=== PATIENT | female | born 1990 | race Caucasian/White ===

== ENCOUNTER 2019-02-28 10:41 | Day surgery (SDC) | payer OTHER ==
[2019-02-28] MEDS ORDERED: Lactated Ringers 1,000 ML IV SCH (11:30)
--- NOTE | 2019-02-28 11:41 | PCM.PREANE ---
Preanesthetic Assessment - Anesthesia/Transfusion/Family Hx Anesthesia History: No Prior Anesthesia Family History of Anesthesia Reaction: No Transfusion History: No Prior Transfusion(s) Intubation History: Unknown - Review of Systems General: No Symptoms Pulmonary: No Symptoms Cardiovascular: No Symptoms Gastrointestinal: No Symptoms Neurological: No Symptoms Other: Reports: None - Physical Assessment O2 Sat by Pulse Oximetry: 98 Respiratory Rate: 16 Vital Signs: Last Vital Signs Temp 36.3 C 02/28/19 11:25 Pulse 76 02/28/19 11:25 Resp 16 02/28/19 11:25 BP 133/83 02/28/19 11:25 Pulse Ox 98 02/28/19 11:25 Height: 5 ft 5.5 in Weight: 73.936 kg ASA Class: 1 Mental Status: Alert & Oriented x3 Airway Class: Mallampati = 1 Dentition: Reports: Normal Dentition Thyro-Mental Finger Breadths: 3 Mouth Opening Finger Breadths: 3 ROM/Head Extension: Full Lungs: Clear to Auscultation, Normal Respiratory Effort Cardiovascular: Regular Rate, Regular Rhythm - Lab Values: Laboratory Last Values WBC 6.53 K/uL (4.0-11.0) 02/27/19 08:45 RBC 4.46 M/uL (4.30-5.90) 02/27/19 08:45 Hgb 13.6 g/dL (12.0-16.0) 02/27/19 08:45 Hct 40.2 % (36.0-46.0) 02/27/19 08:45 MCV 90.1 fL (80.0-98.0) 02/27/19 08:45 MCH 30.5 pg (27.0-32.0) 02/27/19 08:45 MCHC 33.8 g/dL (31.0-37.0) 02/27/19 08:45 RDW Std Deviation 41.7 fl (28.0-62.0) 02/27/19 08:45 RDW Coeff of Megan 13 % (11.0-15.0) 02/27/19 08:45 Plt Count 293 K/uL (150-400) 02/27/19 08:45 MPV 9.60 fL (7.40-12.00) 02/27/19 08:45 Nucleated RBC % 0.0 /100WBC 02/27/19 08:45 Nucleated RBCs # 0 K/uL 02/27/19 08:45 Blood Type O POSITIVE 02/27/19 08:45 Antibody Screen NEGATIVE 02/27/19 08:45 - Allergies Allergies/Adverse Reactions: Allergies Allergy/AdvReac Type Severity Reaction Status Date / Time No Known Allergies Allergy Verified 02/24/19 08:33 - Blood Blood Available: No - Anesthesia Plan Pre-Op Medication Ordered: None - Acknowledgements Anesthesia Type Planned: General Anesthesia Pt an Appropriate Candidate for the Planned Anesthesia: Yes Alternatives and Risks of Anesthesia Discussed w Pt/Guardian: Yes Pt/Guardian Understands and Agrees with Anesthesia Plan: Yes PreAnesthesia Questionnaire - Past Health History Medical/Surgical History: Denies 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 - Past Surgical History Head Surgeries/Procedures: Reports: None - SUBSTANCE USE Smoking Status *Q: Never Smoker Recreational Drug Use History: No - HOME MEDS Home Medications: Home Meds Ascorbate Calcium [Vitamin C] 500 mg PO DAILY 02/24/19 [History] Calcium Carbonate/Vitamin D3 [Calcium 250+D] 1 tab PO DAILY 02/24/19 [History] Choline Dihydrogen Citrate [Choline Citrate] 350 mg PO DAILY 02/24/19 [History] Fish Oil/[place]-3 Fatty Acids [Fish Oil 1,000 MG] 2,000 mg PO DAILY 02/24/19 [ History] L.acidoph,Paracasei, B.lactis [Probiotic] 1 tab PO DAILY 02/24/19 [History] PNV95/Ferrous Fumarate/FA [ Vitamin Tablet] 1 tab PO DAILY 02/24/19 [ History] Vitamin B6-pyridOXINE 1 tab PO DAILY 02/24/19 [History] - CURRENT (IN HOUSE) MEDS Current Meds: Current Medications Lactated Ringer's (Ringers, Lactated) 1,000 mls @ 100 mls/hr IV ASDIRECTED CHARANJIT
[2019-02-28] MEDS ORDERED: Propofol 200 MG/20 ML SDV ONE (12:41)
[2019-02-28] MEDS ORDERED: fentaNYL 100 MCG/2 ML SDV ONE ×2 (12:41→13:20)
[2019-02-28] MEDS ORDERED: Midazolam 1 MG/ML 2 ML SDV ONE (12:41)
[2019-02-28] MEDS ORDERED: Dexamethasone 4 MG/ML 5 ML MDV ONE (13:20)
[2019-02-28] MEDS ORDERED: Ondansetron 4 MG/2 ML SDV ONE (13:20)
--- NOTE | 2019-02-28 13:39 | PCM.OPNOTE ---
- General Post-Op/Procedure Note Date of Surgery/Procedure: 02/28/19 Operative Procedure(s): hysteroscopic evacuation of products of conception with dilatation and curettage. Findings: uterus midposition, sounds to 8 cm, large piece of tissue attached to anterior fundus removed, normal uterine cavity after removal of tissue. Pre Op Diagnosis: incomplete spontaneous . Post-Op Diagnosis: Same Anesthesia Technique: General LMA Primary Surgeon: Angelica Murphy Anesthesia Provider: Marcia Davey [employer] Supervisor: Enedina Gonzales Pathology: products of conception Fluid Replacement, Intraop: 900 EBL in mLs: 10 Drain/Tube Comments:: hysteroscopic deficit 125 ml. Complications: None Known. Condition: Good
--- NOTE | 2019-02-28 14:15 | PCM.POSTAN ---
POST ANESTHESIA ASSESSMENT - MENTAL STATUS Mental Status: Alert - VITAL SIGNS Pulse Rate: 64 SaO2: 96 Resp Rate: 16 Blood Pressure: 109/70 - RESPIRATORY Respiratory Status: Respiratory Rate WNL, Airway Patent, O2 Saturation Stable - CARDIOVASCULAR CV Status: Pulse Rate WNL, Blood Pressure Stable, Other (occasional PVC's, EKG ordered. Pt denies history of PVC's or cardiac abnormalities. BP WNL.) - POST OP HYDRATION Hydration Status: Adequate & Stable
--- NOTE | 2019-02-28 15:35 | PCM48HPAN ---
Post Anesthesia Note - EVALUATION WITHIN 48HRS OF ANESTHETIC Vital Signs in Normal Range: Yes Patient Participated in Evaluation: Yes Respiratory Function Stable: Yes Airway Patent: Yes Cardiovascular Function Stable: Yes Hydration Status Stable: Yes Pain Control Satisfactory: Yes Nausea and Vomiting Control Satisfactory: Yes Mental Status Recovered: Yes Pulse Rate: 64 Resp Rate: 16 Blood Pressure: 109/70 - COMMENTS/OBSERVATIONS Free Text/Narrative:: no anesthesia problems
--- NOTE | 2019-02-28 18:35 | OR ---
SURGEON: Angelica Murphy M.D. DATE OF PROCEDURE: 02/28/2019 PREOPERATIVE DIAGNOSIS: Incomplete spontaneous . POSTOPERATIVE DIAGNOSIS: Incomplete spontaneous . PROCEDURE: Hysteroscopic removal of retained products of conception and uterine curettage. PRIMARY SURGEON: Angelica Murphy M.D. ANESTHESIA: General LMA. ESTIMATED BLOOD LOSS: Less than 10 mL. FLUIDS: 900 mL of crystalloid. HYSTEROSCOPIC DEFICIT: 125 mL normal saline. FINDINGS: Uterus sounded to 8 cm mid position with excellent visualization of the uterine cavity and the anterior fundal portion. There was an attached large piece of tissue that was removed with the MyoSure. Following this, there was normal appearance of the uterine cavity. Bilateral tubal ostia were identified and were normal. COMPLICATIONS: None known. DISPOSITION: Stable to recovery. PATHOLOGY SPECIMEN: Products of conception. BRIEF HISTORY: This is a 28-year-old female. She is G2, P0-0-2-0, with current spontaneous , having been followed with HCG following spontaneously from 80 down to 13/2 weeks' time. Her bleeding had almost resolved, however, she continued to have some brownish discharge. She denies fever, chills, or pelvic pain. Ultrasound confirmed retained products of conception with increased Doppler flow and therefore as this was an incomplete spontaneous , recommendation after 2 weeks of observation was to proceed with intervention. Due to the prolonged episode and small piece of tissue, I recommended proceeding with a hysteroscopic approach with the MyoSure followed by curettage. Surgical risks were reviewed including bleeding, infection, injury to bowel, bladder, blood vessels, ureters, or other organs; risk of thromboembolic event, risk of Asherman syndrome, risk of uterine perforation, risk of fluid overload. Understanding all these risks, she does desire to proceed. DESCRIPTION OF PROCEDURE: With the patient in the dorsal lithotomy position, under adequate general LMA analgesia, the abdomen and perineum were prepped with Betadine and draped in usual fashion for vaginal surgery. SCDs were in place. The bladder had been drained with a straight cath and an appropriate time-out was held after the pelvis was appropriately draped. Bimanual examination revealed a midposition 8 week size uterus. Speculum was placed in the vagina. The anterior lip of the cervix was grasped with an Allis clamp. The uterus was sounded to 8 cm. The cervix was easily dilated to a 6 mm Hegar dilator. The hysteroscope was placed into the uterine cavity. There was excellent visualization, but with a large piece of tissue on the anterior fundus extending most of the way down the anterior uterus, the MyoSure was utilized to remove the tissue. Following removal of the tissue, there was no evidence of further retained products of conception. There was excellent visualization of the uterine cavity. Bilateral tubal ostia were identified and the hysteroscope was removed. Sharp curettage was performed at the 12, 3, 6, and 9 o'clock position. Minimal additional tissue was obtained and a good uterine cry was felt. All the instruments were removed from the vagina. Final sponge, needle, and instrument counts were reported as correct. There were no known complications. The patient was transferred to recovery in good condition. DARYN DICKSON /[id number]
== END 2019-02-28 16:00 | disposition home or self-care (01) ==
LOC: MW.SDS 10:41
PROVIDERS: ATTEND Obstetrics & Gynecology
DX: O03.4 Incomplete spontaneous abortion without complication (principal); Z79.899 Other long term (current) drug therapy
CPT/HCPCS: 36415; 58558; 85027; 86850; 86900; 86901; 93005; J1100; J2250; J2405; J2704; J3010; J7120; 88305

== ENCOUNTER 2020-01-13 07:11 | Inpatient (IN) | payer OTHER ==
[2020-01-13] MEDS ORDERED: Nalbuphine 10 MG/1 ML Vial IVPUSH PRN (08:20)
[2020-01-13] MEDS ORDERED: Sodium Chloride 0.9% 10 ML SDV IV PRN (08:20)
[2020-01-13] MEDS ORDERED: Methylergonovine 0.2 MG/1 ML Amp IM PRN (08:20)
[2020-01-13] MEDS ORDERED: Misoprostol 200 MCG Tab PO PRN (08:20)
[2020-01-13] MEDS ORDERED: Carboprost Tromethamine 250 MCG/1 ML Amp IM PRN (08:20)
[2020-01-13] MEDS ORDERED: Sodium Chloride 0.9% 2.5 ML Syringe FLUSH PRN (08:20)
[2020-01-13] MEDS ORDERED: Lidocaine 1% 50 ML MDV INJECT PRN (08:20)
[2020-01-13] MEDS ORDERED: Tranexamic Acid 1,000 MG in Sodium Chloride 0.9% 100 ML IV PRN (08:20)
[2020-01-13] MEDS ORDERED: Water For Irrigation,Sterile 1,000 ML Container IRR PRN (08:20)
[2020-01-13] MEDS ORDERED: Sodium Chloride 0.9% 10 ML Syringe FLUSH PRN (08:20)
[2020-01-13] MEDS ORDERED: Butorphanol 1 MG/ML SDV IVPUSH PRN (08:20)
[2020-01-13] MEDS ORDERED: Oxytocin/0.9 % Sodium Chloride 30 UNIT/500 ML BAG IV SCH ×2 (08:30→20:30)
[2020-01-13] MEDS: Lactated Ringers 1,000 ML IV SCH ×3 (08:55→20:12)
--- NOTE | 2020-01-13 14:04 | PCM.PREANE ---
Preanesthetic Assessment - Procedure Proposed Procedure: labor epidural consult - Anesthesia/Transfusion/Family Hx Anesthesia History: Prior Anesthesia Without Reaction Other Type of Anesthesia Reaction Comment: pt states had some arrythmia during surgery EKG performed in PACU and WNL Family History of Anesthesia Reaction: No Family History of Anesthesia Reaction, Other: nausea Transfusion History: No Prior Transfusion(s) Intubation History: Unknown - Review of Systems General: No Symptoms Pulmonary: No Symptoms Cardiovascular: No Symptoms Gastrointestinal: No Symptoms Neurological: No Symptoms Other: Reports: None - Physical Assessment Height: 5 ft 5 in Weight: 87.543 kg ASA Class: 2 Mental Status: Alert & Oriented x3 Airway Class: Mallampati = 1 Dentition: Reports: Normal Dentition Thyro-Mental Finger Breadths: 3 Mouth Opening Finger Breadths: 3 ROM/Head Extension: Full Lungs: Clear to Auscultation, Normal Respiratory Effort Cardiovascular: Regular Rate, Regular Rhythm - Lab Values: Laboratory Last Values WBC 12.81 K/uL (4.0-11.0) H 01/13/20 08:53 RBC 4.48 M/uL (4.30-5.90) 01/13/20 08:53 Hgb 14.0 g/dL (12.0-16.0) 01/13/20 08:53 Hct 41.0 % (36.0-46.0) 01/13/20 08:53 MCV 91.5 fL (80.0-98.0) 04 08:53 MCH 31.3 pg (27.0-32.0) 01/13/20 08:53 MCHC 34.1 g/dL (31.0-37.0) 01/13/20 08:53 RDW Std Deviation 44.9 fl (28.0-62.0) 01/13/20 08:53 RDW Coeff of Megan 14 % (11.0-15.0) 01/13/20 08:53 Plt Count 207 K/uL (150-400) 01/13/20 08:53 MPV 10.40 fL (7.40-12.00) 01/13/20 08:53 Nucleated RBC % 0.0 /100WBC 01/13/20 08:53 Nucleated RBCs # 0 K/uL 01/13/20 08:53 Blood Type O POSITIVE 01/13/20 08:53 Antibody Screen NEGATIVE 01/13/20 08:53 - Allergies Allergies/Adverse Reactions: Allergies Allergy/AdvReac Type Severity Reaction Status Date / Time No Known Allergies Allergy Verified 02/24/19 08:33 - Blood Blood Available: Yes Product(s) Available: PRBC - Anesthesia Plan Pre-Op Medication Ordered: None - Acknowledgements Anesthesia Type Planned: Epidural Pt an Appropriate Candidate for the Planned Anesthesia: Yes Alternatives and Risks of Anesthesia Discussed w Pt/Guardian: Yes Pt/Guardian Understands and Agrees with Anesthesia Plan: Yes PreAnesthesia Questionnaire - Past Health History Medical/Surgical History: Denies 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 - Past Surgical History Head Surgeries/Procedures: Reports: None - HOME MEDS Home Medications: Home Meds Ascorbate Calcium [Vitamin C] 500 mg PO DAILY 02/24/19 [History] Calcium Carbonate/Vitamin D3 [Calcium 250+D] 1 tab PO DAILY 02/24/19 [History] Choline Dihydrogen Citrate [Choline Citrate] 350 mg PO DAILY 02/24/19 [History] Fish Oil/[place]-3 Fatty Acids [Fish Oil 1,000 MG] 2,000 mg PO DAILY 02/24/19 [ History] L.acidoph,Paracasei, B.lactis [Probiotic] 1 tab PO DAILY 02/24/19 [History] Pnv No.95/Ferrous Fum/Folic AC [ Vitamin Tablet] 1 tab PO DAILY [History] Vitamin B6-pyridOXINE 1 tab PO DAILY 02/24/19 [History] - CURRENT (IN HOUSE) MEDS Current Meds: Current Medications Butorphanol Tartrate (Stadol) 1 mg IVPUSH Q1H PRN PRN Reason: Pain Carboprost Tromethamine (Hemabate Ds) 250 mcg IM ASDIRECTED PRN PRN Reason: Post Hemorrhage Tranexamic Acid 1,000 mg/ (Sodium Chloride) 110 mls @ 660 mls/hr IV ONETIME PRN PRN Reason: Bleeding Lactated Ringer's (Ringers, Lactated) 1,000 mls @ 150 mls/hr IV ASDIRECTED CHARANJIT Last Admin: 01/13/20 08:55 Dose: 150 mls/hr Oxytocin/Sodium Chloride (Oxytocin 30 Unit/500 Ml-Ns) 30 unit in 500 mls @ 999 mls/hr IV TITRATE CHARANJIT Lidocaine HCl (Xylocaine 1%) 50 ml INJECT ONETIME PRN PRN Reason: Laceration repair Methylergonovine Maleate (Methergine) 0.2 mg IM ASDIRECTED PRN PRN Reason: Post Hemorrhage Misoprostol (Cytotec) 200 mcg PO ONETIME PRN PRN Reason: Post Hemorrhage Nalbuphine HCl (Nubain) 10 mg IVPUSH Q1H PRN PRN Reason: Pain (severe 7-10) Sodium Chloride (Saline Flush) 10 ml FLUSH ASDIRECTED PRN PRN Reason: Keep Vein Open Sodium Chloride (Saline Flush) 2.5 ml FLUSH ASDIRECTED PRN PRN Reason: Keep Vein Open Sodium Chloride (Normal Saline) 10 ml IV ASDIRECTED PRN PRN Reason: IV Use Sterile Water (Sterile Water For Irrigation) 1,000 ml IRR ASDIRECTED PRN PRN Reason: delivery
[2020-01-13] MEDS ORDERED: Bupivicaine/fentaNYL/NS 250 ML ONE (18:07)
[2020-01-13] MEDS ORDERED: Ropivacaine 0.2% PF 2 MG/ML 20 ML SDV ONE (18:07)
[2020-01-14] MEDS ORDERED: Acetaminophen 500 MG Tab PO PRN ×2 (05:05)
[2020-01-14] MEDS ORDERED: Ibuprofen 400 MG Tab PO PRN (05:05)
[2020-01-14] MEDS ORDERED: Witch Hazel Medicated Pads 40/Jar TOP PRN (05:05)
[2020-01-14] MEDS ORDERED: Benzocaine/Menthol 20%-0.5% Spray 78 GM Cannister TOP PRN (05:05)
[2020-01-14] MEDS ORDERED: Lanolin 100% Cream 7 GM Tube TOP PRN (05:05)
[2020-01-14] MEDS ORDERED: Docusate Sodium 100 MG Cap PO PRN (05:05)
[2020-01-14] MEDS ORDERED: Bisacodyl 10 MG Supp RECTAL PRN (05:05)
[2020-01-14] MEDS: Ibuprofen 800 MG Tab PO PRN ×3 (06:52→19:55)
--- NOTE | 2020-01-14 14:39 | PCM48HPAN ---
Post Anesthesia Note - EVALUATION WITHIN 48HRS OF ANESTHETIC Vital Signs in Normal Range: Yes Patient Participated in Evaluation: Yes Respiratory Function Stable: Yes Airway Patent: Yes Cardiovascular Function Stable: Yes Hydration Status Stable: Yes Pain Control Satisfactory: Yes Nausea and Vomiting Control Satisfactory: Yes Mental Status Recovered: Yes
--- NOTE | 2020-01-14 16:37 | OR ---
SURGEON: Rickey Villalobos MD DATE OF PROCEDURE: 01/14/2020 INDICATION FOR PROCEDURE: A 29-year-old G3, P0-0-2-0 at 38 weeks and 6 days, admitted with spontaneous rupture of membranes and early labor. She was 4 cm on admission and progressed on her own. She had otherwise uncomplicated and was GBS negative. She received an epidural with good pain control. Her contractions started to space out, so she was started on Pitocin for augmentation, category 1 tracing. The patient became fully dilated and started pushing with contractions. PREOPERATIVE DIAGNOSES: 1. Shetty intrauterine at 38 weeks and 6 days. 2. Arrest of descent due to maternal exhaustion. POSTOPERATIVE DIAGNOSES: 1. Shetty intrauterine at 38 weeks and 6 days. 2. Arrest of descent due to maternal exhaustion. PROCEDURE PERFORMED: Vacuum-assisted vaginal delivery, repair of bilateral vaginal lacerations. ANESTHESIA: Epidural. ANESTHESIOLOGIST: Dr. Kike Medrano. ESTIMATED BLOOD LOSS: 250 mL. FINDINGS: Viable male , score of 8 and 9, weight of 7 pounds 2 ounces. Double nuchal cord DESCRIPTION OF PROCEDURE: The patient pushed with contractions for approximately 3 hours and 45 minutes. The baby initially was asynclitic. It was manually rotated to OA. She made good descent, however she became tired with decreased effort. The head was at +4 station. After discussion with the patient regarding risks and benefits of vacuum-assisted vaginal delivery with risks to the baby including hematomas, scalp lacerations, and risk to mother of vaginal lacerations, she was agreeable to proceed with vacuum-assisted delivery. The [place] vacuum was placed at the flexion point. The head was in OA presentation. The pressure was increased to appropriate amount. Traction was applied to the vacuum while she pushed for approximately 10 minutes with 2 contractions. There was no pop-offs. The head delivered over intact perineum. The vacuum was removed prior to delivery. The head and shoulders presented directly horizontal and did not restitute. The shoulders were then rotated clockwise to AP position and head LOT. Anterior shoulder delivered easily followed by posterior shoulder and the remaining body. She had a double nuchal cord that was reduced after delivery. The baby was placed on the maternal chest and evaluated by awaiting nursery staff. Baby was stimulated and suctioned, he became pink, was crying and moving all extremities. The umbilical cord was clamped and cut after 60 seconds and no longer pulsating. The placenta was removed with gentle traction on the umbilical cord. The cord gases were obtained. The uterus was firm and at the umbilicus after fundal massage. The vagina was examined and she had 2 superficial vaginal lacerations bilaterally. They were reapproximated with 3-0 Vicryl with [id number] stitches. Hemostasis was confirmed. She tolerated the procedure well and was given care instructions. DEMETRIUS DICKSON /[id number] MTDD
[2020-01-15] MEDS: Ibuprofen 800 MG Tab PO PRN (09:10)
== END 2020-01-15 13:39 | disposition home or self-care (01) | DRG 807 ==
LOC: MW.OBCHECK 07:11 → MW.OB 07:13 → MW.OBCHECK 08:20 → OBSVTOIN 01-14 04:27 → MW.OB 01-14 09:30
PROVIDERS: ADMIT Obstetrics & Gynecology; ATTEND Obstetrics & Gynecology
PROC: 10D07Z6 Extraction of Products of Conception, Vacuum, Via Natural or Artificial Opening (ICD-10-PCS; principal; 2020-01-14)
PROC: 0UQGXZZ Repair Vagina, External Approach (ICD-10-PCS; 2020-01-14)
PROC: 3E0R3BZ Introduction of Anesthetic Agent into Spinal Canal, Percutaneous Approach (ICD-10-PCS; 2020-01-14)
DX: O62.1 Secondary uterine inertia (principal); Z37.0 Single live birth; Z3A.38 38 weeks gestation of pregnancy; O70.0 First degree perineal laceration during delivery
CPT/HCPCS: 01967; 36415; 51702; 59025; 59409; 85014; 85018; 85027; 86592; 86593; 86850; 86900; 86901; A9270-GY; J2590; J2795; J3010; J7120

== ENCOUNTER 2022-09-27 00:30 | Inpatient (IN) | payer OTHER ==
[2022-09-27] MEDS ORDERED: Sodium Chloride 0.9% 20 ML SDV IV PRN (02:27)
[2022-09-27] MEDS ORDERED: Tranexamic Acid 1,000 MG in Sodium Chloride 0.9% 100 ML IV PRN (02:27)
[2022-09-27] MEDS ORDERED: Ondansetron 4 MG/2 ML SDV IVPUSH PRN (02:27)
[2022-09-27] MEDS ORDERED: Methylergonovine 0.2 MG/1 ML Amp IM PRN (02:27)
[2022-09-27] MEDS ORDERED: Carboprost Tromethamine 250 MCG/1 ML Amp IM PRN (02:27)
[2022-09-27] MEDS ORDERED: Misoprostol 200 MCG Tab PO PRN (02:27)
[2022-09-27] MEDS ORDERED: Sodium Chloride 0.9% 10 ML Syringe FLUSH PRN (02:27)
[2022-09-27] MEDS ORDERED: Sodium Chloride 0.9% 2.5 ML Syringe FLUSH PRN (02:27)
[2022-09-27] MEDS ORDERED: Butorphanol 1 MG/ML SDV IVPUSH PRN (02:27)
[2022-09-27] MEDS ORDERED: Lidocaine 1% 50 ML MDV INJECT PRN (02:27)
[2022-09-27] MEDS ORDERED: Water For Irrigation,Sterile 1,000 ML Container IRR PRN (02:27)
[2022-09-27] MEDS ORDERED: Oxytocin/0.9 % Sodium Chloride 30 UNIT/500 ML BAG IV SCH ×2 (02:30→13:15)
[2022-09-27] MEDS: Lactated Ringers 1,000 ML IV SCH ×3 (02:45→10:15)
[2022-09-27] MEDS ORDERED: Ropivacaine/PF 400 MG/200 ML PCA ONE (03:17)
[2022-09-27] MEDS ORDERED: Bupivacaine 0.5% 10 ML SDV ONE (03:17)
[2022-09-27] MEDS ORDERED: Phenylephrine HCl In 0.9% NaCl 1 MG/10 ML Vial IVPUSH PRN (06:16)
[2022-09-27] MEDS ORDERED: ePHEDrine 50 MG/ML SDV IVPUSH PRN ×2 (06:16)
[2022-09-27] MEDS ORDERED: Ropivacaine HCl/PF 400 MG in Premix Bag 1 BAG EPIDUR SCH (06:30)
[2022-09-27] MEDS ORDERED: Phenylephrine HCl In 0.9% NaCl 1 MG/10 ML Vial IVPUSH SCH (06:30)
[2022-09-27] MEDS ORDERED: Terbutaline 1 MG/ML SDV SUBCUT PRN (13:12)
[2022-09-27] MEDS ORDERED: Ibuprofen 400 MG Tab PO PRN (14:07)
[2022-09-27] MEDS ORDERED: Witch Hazel Medicated Pads 40/Jar TOP PRN (14:07)
[2022-09-27] MEDS ORDERED: Docusate Sodium 100 MG Cap PO PRN (14:07)
[2022-09-27] MEDS ORDERED: Bisacodyl 10 MG Supp RECTAL PRN (14:07)
[2022-09-27] MEDS ORDERED: Hydrocortisone 2.5% Crm 30 GM Tube TOP PRN (14:07)
[2022-09-27] MEDS ORDERED: Acetaminophen 500 MG Tab PO PRN (14:07)
[2022-09-27] MEDS ORDERED: oxyCODONE 5 MG Tab PO PRN (14:07)
[2022-09-27] MEDS ORDERED: Benzocaine/Menthol 20%-0.5% Spray 78 GM Cannister TOP PRN (14:07)
[2022-09-27] MEDS ORDERED: Lanolin 100% Cream 7 GM Tube TOP PRN (14:07)
[2022-09-27] MEDS: Ibuprofen 800 MG Tab PO PRN (16:48)
[2022-09-27] MEDS: Acetaminophen 500 MG Tab PO PRN (19:58)
[2022-09-28] MEDS: Ibuprofen 800 MG Tab PO PRN ×2 (02:39→16:18)
[2022-09-28] MEDS: Acetaminophen 500 MG Tab PO PRN ×2 (08:48→19:59)
[2022-09-29] MEDS: Acetaminophen 500 MG Tab PO PRN (04:49)
[2022-09-29] MEDS: Ibuprofen 800 MG Tab PO PRN (07:48)
== END 2022-09-29 14:30 | disposition home or self-care (01) | DRG 807 ==
LOC: MW.OBCHECK 00:30 → MW.OB 00:32 → MW.OBCHECK 02:26 → MW.OB 02:27 → OBSVTOIN 13:49 → MW.OB 17:46
PROVIDERS: ADMIT Obstetrics & Gynecology; ATTEND Obstetrics & Gynecology
PROC: 10E0XZZ Delivery of Products of Conception, External Approach (ICD-10-PCS; principal; 2022-09-27)
PROC: 0KQM0ZZ Repair Perineum Muscle, Open Approach (ICD-10-PCS; 2022-09-27)
PROC: 10907ZC Drainage of Amniotic Fluid, Therapeutic from Products of Conception, Via Natural or Artificial Opening (ICD-10-PCS; 2022-09-27)
PROC: 3E0R3BZ Introduction of Anesthetic Agent into Spinal Canal, Percutaneous Approach (ICD-10-PCS; 2022-09-27)
PROC: 00HU33Z Insertion of Infusion Device into Spinal Canal, Percutaneous Approach (ICD-10-PCS; 2022-09-27)
DX: O70.1 Second degree perineal laceration during delivery (principal); Z37.0 Single live birth; Z3A.38 38 weeks gestation of pregnancy; Z20.822 Contact with and (suspected) exposure to COVID-19
CPT/HCPCS: 01967; 36415; 51702; 59025; 59409; 82803; 85014; 85018; 85027; 86592; 86850; 86900; 86901; A9270-GY; J2590; J2795; J3490; J7120; U0002